=== PATIENT | female | born 1960 | race Caucasian/White ===

== ENCOUNTER 2017-06-01 07:51 | Day surgery (SDC) | payer BC ==
[~2017-06-01] VITALS: Ht 167.6 cm; Wt 81.4 kg
[~2017-06-01 07:51] MED LIST: FISH OIL 1,2001 EAC8 PO; GLUCOSAMINE &1 EAC1 PO; MULTI VITAMIN1 EAC2 PO; OS-CAL 500+D31 EAC1 PO; SYNTHROID112 MC1 PO; VITAMIN D31000 UNI3 PO; ZEGERID PO
== END 2017-06-01 13:00 ==
LOC: SRG 07:51 → SHSB 07:51 → SRG 08:00 → ORW 09:58 → SHSB 11:15 → SRG 13:00
PROC: 0JH60XZ Insertion of Tunneled Vascular Access Device into Chest Subcutaneous Tissue and Fascia, Open Approach (ICD-10-PCS; principal; 2017-06-01)
PROC: 05H533Z Insertion of Infusion Device into Right Subclavian Vein, Percutaneous Approach (ICD-10-PCS; 2017-06-01)
PROC: B516YZA Fluoroscopy of Right Subclavian Vein using Other Contrast, Guidance (ICD-10-PCS; 2017-06-01)
DX: C50.912 Malignant neoplasm of unspecified site of left female breast (principal); E03.9 Hypothyroidism, unspecified; K21.9 Gastro-esophageal reflux disease without esophagitis; Z90.89 Acquired absence of other organs; Z98.890 Other specified postprocedural states; Z79.52 Long term (current) use of systemic steroids; Z79.899 Other long term (current) drug therapy
CPT/HCPCS: C1788; J0690; J1644